=== PATIENT | male | born 1995 | race Caucasian/White ===

== ENCOUNTER 2024-07-22 12:38 | Emergency (ER) | payer OTHER, SELFPAY ==
[2024-07-22 12:40] VITALS: BP 132/86; PULSE 7; RESP 15; TEMP 36.6; O2SAT 98; BMI 33.3
--- NOTE | 2024-07-22 13:21 | EX.ED.UPPERE ---
HPI History of Present Illness HPI Narrative: Patient presents with pain and swelling to his left middle finger. Patient got his finger smashed by a piece of steel 2 days ago. Patient states that he had x-rays which showed a fracture of the tuft of the distal phalanx. Patient had sutures placed in his finger. Patient had his nail trephinated. Patient states that the trephination hole has since clotted and it is no longer draining anything. Patient denies any paresthesias or weakness. Patient states his pain is aching and tightness. Patient states it is worse with squeezing his finger. Patient denies any paresthesias or weakness. Chief Complaint: Upper Extremity Injury Onset/Context/Timing Onset: Days (3) Context: Sudden Onset Timing: Continuous Quality of Pain: Aching and - (Tightness) Location: Left middle finger Worsened by: Squeezing and pressure Relieved by: Nothing Associated Symptoms Associated Symptoms: Negative for Parasthesia, Weakness or Loss of Funtion Narrative Tetanus Immunization: <5 years PFSH PFSH Medical History no medical history no medical history Home Medications ?Medication ?Instructions ?Recorded ?Last Taken ?Type cephalexin 500 mg capsule 500 mg PO Q6 #20 CAPSULES 07/22/24 Unknown Rx Allergy/AdvReac Type Severity Reaction Status Date / Time No Known Allergies Allergy Verified 07/22/24 12:42 Family History no significant family his Surgical History no surgical history no surgical history Social History Smoking Status: Never smoker ROS ROS ED Constitutional Constitutional ED: Denies chills or fever(s) Eyes Eyes: Denies blurry vision or change in vision ENT ENT ED: Denies rhinorrhea or sore throat Cardiovascular Cardiovascular: Denies chest pain or palpitations Respiratory/Chest Respiratory/Chest: Denies cough or dyspnea Gastrointestinal Gastrointestinal: Denies nausea or vomiting Genitourinary Genitourinary ED: Denies dysuria or hematuria Musculoskeletal Musculoskeletal: Denies back pain or neck pain Integumentary Denies abscess or rash Neurologic Neurologic: Denies headache(s) or weakness Allergic/Immunologic Allergic/Immunologic ED: Denies mouth swelling or urticaria EXAM Physical Exam Const Vital Signs: 07/22/24 12:40 Temperature 97.9 F Temperature Source Oral Pulse Rate 7 L Respiratory Rate 15 Blood Pressure 132/86 H Blood Pressure Mean 101 Pulse Ox 98 Oxygen Delivery Method Room Air Positive well nourished and well developed General Appearance ED: well developed and NAD HEENT Reports moist mucous membranes normocephalic and atraumatic Extremity Extremity Narrative: There is edema, ecchymosis, and tenderness over the distal phalanx of the left middle finger. There is a healing laceration with sutures in place. There is no erythema or warmth. There is full range of motion of the MP, PIP, and DIP joints. Sensation is intact to light touch in all digits. Capillary refills less than 2 seconds in all digits. Neuro oriented x3, CN's II-XII intact bilaterally, moves all extremities, no focal motor deficits and no sensory deficits noted Sensorium / Orientation: alert Motor Exam: strength 5/5 throughout Psych mental status grossly normal MDM MDM MDM Narrative Medical decision making narrative: Differential diagnosis includes wound infection, osteomyelitis, and subungual hematoma. X-rays of the left middle finger will be obtained to assess for osteomyelitis. Treatment and Re-Evaluation Narrative: The nail plate of the left long finger was trephinated using an 18-gauge needle. There was good return of blood. This was left open. Patient tolerated procedure well. Patient was advised of his findings. Patient was instructed to increase his Keflex to 4 times daily from twice daily. Patient was given a prescription for more Keflex. Patient was instructed to follow-up with his primary care physician and Workmen's [employer]. physician in 3 to 5 days. Patient was instructed to return if worse in any way. Patient understood and was agreeable with the plan. All questions were answered. Discharge Plan Triage Chief Complaint: Upper Extremity Injury ED Provider: Ed Espinal Dx/Rx/DC Orders Clinical Impression: Open fracture of distal phalanx of digit of left hand, Subungual hematoma Instructions: ED Fracture, Finger, Open Prescriptions: New cephalexin 500 mg capsule 500 mg PO Q6 Qty: 20 0RF Primary Care Provider: Junior Amaya Referrals: Junior Amaya MD [Primary Care Provider] - Print Language: Kiswahili Disposition Disposition: Home, Self Care
--- NOTE | 2024-07-22 13:30 | RAD_ITS ---
PROCEDURE: FINGER(S) MIN 2 VIEWS 07/22/2024 REASON FOR EXAM: INJURY/PAIN TECHNIQUE: 3 view(s) of the left 3rd digit COMPARISON: None. FINDINGS: Bones: Mildly displaced fracture of the tuft of the distal phalanx of the 3rd digit Joints: Normal articulations are seen. Soft tissues: Soft tissue swelling in the distal 3rd digit. Other: RAD/Finger(s) Min 2 Views IMPRESSION: Fracture of the distal phalanx of the 3rd digit with 2 mm displacement [facility]
[2024-07-22 15:02] VITALS: BP 127/75; PULSE 75; RESP 16; TEMP 36.6; O2SAT 99
== END 2024-07-22 15:03 | disposition home or self-care (01) ==
PROVIDERS: Emergency Provider Emergency Medicine; PCP Family Medicine; Visit Provider Emergency Medicine
DX: S62.633B Displaced fracture of distal phalanx of left middle finger, initial encounter for open fracture (principal); W23.0XXA Caught, crushed, jammed, or pinched between moving objects, initial encounter
CPT/HCPCS: 11740; 73140; 99282

== ENCOUNTER 2024-08-04 00:19 | Emergency (ER) | payer OTHER, SELFPAY ==
[2024-08-04 00:20] VITALS: BP 150/93; PULSE 73; RESP 19; TEMP 36.5; O2SAT 98; BMI 33.7
[2024-08-04 00:22] VITALS: BP 150/93; PULSE 73; RESP 18; TEMP 36.5; O2SAT 98
--- NOTE | 2024-08-04 00:40 | EDS_ITS ---
HPI History of Present Illness Chief Complaint: Ear Problem Informant: patient Narrative Narrative: Patient is a 29-year-old male with no significant past medical history. He states over the last 5 to 7 days he has had allergies with sinus congestion and drainage. He reports in the last 24 hours he developed both left and right ear pain. He states that the left pain lasted for a few hours and then seemed to improve but the right pain has been persistent throughout the day. He denies any fevers or chills or injury but has concern for infection based on the increased pain and therefore comes in for evaluation. PFSH PFS Medical History no medical history Home Medications ?Medication ?Instructions ?Recorded ?Last Taken ?Type cephalexin 500 mg capsule 500 mg PO Q6 #20 CAPSULES Unknown Rx amoxicillin 875 mg-potassium 1 tab PO BID 10 days #20 tabs 08/04/24 Unknown Rx clavulanate 125 mg tablet prednisone 20 mg tablet 40 mg (2 x 20 mg) PO DAILY 5 days 08/04/24 Unknown Rx #10 tabs Allergy/AdvReac Type Severity Reaction Status Date / Time No Known Allergies Allergy Verified 08/04/24 00:20 Surgical History no surgical history Social History Smoking Status: Never smoker ROS [facility] ED Constitutional Constitutional ED: Denies chills or fever(s) ENT ENT ED: Reports ear pain bilateral and rhinorrhea; Denies sore throat Cardiovascular Cardiovascular: Denies chest pain Respiratory/Chest Respiratory/Chest: Reports cough; Denies dyspnea Gastrointestinal Gastrointestinal: Denies abdominal pain, diarrhea, nausea or vomiting Musculoskeletal Musculoskeletal: Denies myalgias Integumentary Denies rash Neurologic Neurologic: Denies headache(s) Hematologic/Lymphatic Hematologic/Lymphatic: Denies easy bleeding or easy bruising Allergic/Immunologic Allergic/Immunologic ED: Denies mouth swelling or tongue swelling EXAM Physical Exam Const Vital Signs: 08/04/24 00:20 08/04/24 00:22 08/04/24 00:47 Temperature 97.7 F L 97.7 F L 97.7 F L Temperature Source Oral Oral Pulse Rate 73 73 70 Respiratory Rate 19 H 18 18 Blood Pressure 150/93 H 150/93 H 150/93 H Blood Pressure Mean 112 112 112 Pulse Ox 98 98 98 Oxygen Delivery Method Room Air Room Air Positive well nourished and well developed General Appearance ED: well developed; Negative for pallor HEENT HEENT Narrative: Nasal mucosa is hyperemic and boggy with enlarged inferior nasal turbinates There is cobblestoning in the posterior pharynx consistent with sinus drainage without airway edema or compromise; no secondary findings to suggest infection Bilateral canals are normal. There is no pain with external manipulation of either ear. No pain with palpation over top bilateral mastoids. The left tympanic membrane is erythematous and slightly retracted with loss of landmarks. The right TM is erythematous and bulging also with loss of landmarks both consistent with otitis media. No obvious perforation noted. Eyes PERRL and EOMs intact bilaterally Neck supple Neck Narrative: Positive anterior cervical if adenopathy present Resp normal respiratory effort and clear to auscultation bilaterally Cardio regular rate and regular rhythm Extremity normal to inspection Neuro oriented x3, CN's II-XII intact bilaterally and no sensory deficits noted Sensorium / Orientation: alert Motor Exam: strength 5/5 throughout Psych mental status grossly normal Skin no rashes or lesions noted General Skin Exam: Negative for jaundice or pallor MDM MDM MDM Narrative Medical decision making narrative: Patient presented to the ER hypertensive otherwise with stable vitals. He reported days of nasal/sinus congestion followed by bilateral ear discomfort. Physical exam shows changes consistent with otitis media. Other differential diagnoses were mastoiditis versus otitis externa versus malignant otitis externa versus sinusitis. However his physical exam does not suggest these and is most consistent with otitis media. He was recently placed on Keflex for a finger injury. In order to cover a broader spectrum of microbes and have improved ear and sinus penetration the Keflex will be stopped and will be placed on Augmentin. Steroids will be added secondary to the sinus congestion and pressure. As he does not have signs of systemic infection however there is no need for further workup and he is otherwise safe for discharge History & Record Review Discussion w/independent historian: Patient Discharge Plan Triage Chief Complaint: Ear Problem ED Provider: Jemal Major Dx/Rx/DC Orders Clinical Impression: Bilateral acute otitis media, Hypertension Instructions: ED Otitis Media Adult Prescriptions: New prednisone 20 mg tablet 40 mg PO DAILY 5 Days Qty: 10 0RF amoxicillin-pot clavulanate 875-125 mg tablet 1 tab PO BID 10 Days Qty: 20 0RF No Action cephalexin 500 mg capsule 500 mg PO Q6 Qty: 20 0RF Primary Care Provider: Junior Amaya Referrals: Junior Amaya MD [Primary Care Provider] - Activity Restrictions/Additional Instructions: Please stop the Keflex/cephalexin and begin taking the Augmentin as this will cover the ear infections better. Use the prednisone as directed to help relieve sinus and ear pressure. It will typically take 2 to 3 days for symptom improvement. Return to the ER should you have any further concerns Print Language: Romanian Disposition Disposition: Home, Self Care Discharge Date/Time: 08/04/24 00:50
[2024-08-04 00:47] VITALS: BP 150/93; PULSE 70; RESP 18; TEMP 36.5; O2SAT 98
[2024-08-04] MEDS: predniSONE 20 MG Tablet 60 MG PO (00:47)
[2024-08-04] MEDS: Amox/Clavulanate 875 MG Tablet PO (00:47)
== END 2024-08-04 00:50 | disposition home or self-care (01) ==
LOC: ED 00:49
PROVIDERS: Emergency Provider Emergency Medicine; PCP Family Medicine; Visit Provider Emergency Medicine
DX: H66.93 Otitis media, unspecified, bilateral (principal); I10 Essential (primary) hypertension
CPT/HCPCS: 99283